=== PATIENT | male | born 1930 | race Caucasian/White ===

== ENCOUNTER 2017-09-07 22:52 | Emergency (ER) | payer MEDICARE, OTHER ==
[2017-09-07] MEDS ORDERED: Acetaminophen 500 MG Tab PO ONE (23:25)
[2017-09-07] MEDS ORDERED: Acetaminophen 500 MG Tab ONE (23:28)
[2017-09-08 01:48] VITALS: BP 111/54
--- NOTE | 2017-09-08 03:47 | ER ---
DATE SEEN: 09/07/2017 CHIEF COMPLAINT: Head injury. HISTORY OF PRESENT ILLNESS: An 87-year-old male who was walking in his house and fell, sustained a laceration to the forehead, did not pass out. He was brought in because he was bleeding uncontrollably. He is on Coumadin. PAST MEDICAL HISTORY: Hypertension and type 2 diabetes. CURRENT MEDICATIONS: Reviewed. REVIEW OF SYSTEMS: He denies any fever, chills, chest pain, or confusion. He has a mild headache. No neck pain. PHYSICAL EXAMINATION: GENERAL: He is a well-nourished male. VITAL SIGNS: His blood pressure is normal. He is afebrile. HEAD: There is a 7 cm sized laceration on the left side of the glabella. NECK: No tenderness to palpation of the cervical spine. NEUROLOGIC: Jessica Coma Scale is 15/15. Pupils equal and reactive to light. LABORATORY DATA: INR is 2.2. CT head, negative. IMPRESSION: 1. Head injury. 2. Laceration repair. PLAN: I used mehran to pull the edges together of the 7 cm sized laceration, put pressure and the dressing. The patient is discharged home after about 2 hours, advised to have it taken out in about 5 days. TIME SEEN: 2330 hours. /[id number] NELSON/RASHAWN
== END 2017-09-08 00:35 | disposition home or self-care (01) ==
LOC: FB.ED 22:52
DX: S01.81XA Laceration without foreign body of other part of head, initial encounter (principal); E11.9 Type 2 diabetes mellitus without complications; I10 Essential (primary) hypertension; W01.190A Fall on same level from slipping, tripping and stumbling with subsequent striking against furniture, initial encounter; Y93.01 Activity, walking, marching and hiking
CPT/HCPCS: 12002; 36415; 70450; 80048; 85025; 85610; 99284; A9270; 12014; 99282